=== PATIENT | male | born 1985 | race Caucasian/White ===

== ENCOUNTER 2017-05-25 09:21 | Emergency (ER) | payer SELFPAY ==
[~2017-05-25] VITALS: Ht 180.3 cm; Wt 95.3 kg
--- NOTE | 2017-05-25 09:23 | NUR ---
Dr Zhao at the bedside for eval and exam.
[2017-05-25] MEDS ORDERED: LORAZEPAM 2 MG/1 ML VIAL IV ONE (09:30)
[2017-05-25] MEDS ORDERED: ONDANSETRON 4 MG/2 ML VIAL IV ONE (09:30)
[2017-05-25] MEDS ORDERED: IV NORMAL SALINE 1000 ML BAG IV ONE (09:30)
[2017-05-25] MEDS ORDERED: ONDANSETRON 4 MG/2 ML VIAL ONE (09:41)
[2017-05-25] MEDS ORDERED: LORAZEPAM 2 MG/1 ML VIAL ONE (09:42)
[2017-05-25 09:50] LABS: BASOPHILS % (AUTO) 0.2 % (0.0-2.0); EOSINOPHILS % (AUTO) 0.3 % (0.0-7.0); HEMATOCRIT 41.5 % (36.7-47.1); HEMOGLOBIN 14.6 g/dL (12.5-16.3); LYMPHOCYTES # (AUTO) 0.8 K/uL (20.0-40.0); LYMPHOCYTES % (AUTO) 8.7 % (20.5-51.5); MEAN CORPUSCULAR HEMOGLOBIN 32.4 uug (23.8-33.4); MEAN CORPUSCULAR HGB CONC 35 g/dL (32.5-36.3); MEAN CORPUSCULAR VOLUME 92.3 fL (73.0-96.2); MONOCYTES # (AUTO) 0.3 K/uL (2.0-10.0); MONOCYTES % (AUTO) 3.1 % (0.0-11.0); NEUTROPHILS # (AUTO) 8.5 K/uL (1.8-8.9); NEUTROPHILS % (AUTO) 87.7 % (38.5-71.5); PLATELET COUNT (AUTO) 134 K/uL (152-348); WHITE BLOOD COUNT (AUTO) 9.7 K/uL (3.6-10.2)
[2017-05-25 10:07] LABS: BILIRUBIN,TOTAL 1.3 mg/dL (0.2-1.0); CREATININE 1.2 mg/dL (0.6-1.3)
--- NOTE | 2017-05-25 10:41 | NUR ---
IV removed. Catheter intact and site benign. Pressure and 4x4 gauze applied to site. No bleeding noted.
[2017-05-25 10:42] VITALS: BP 132/78
--- NOTE | 2017-05-25 10:43 | NUR ---
Patient discharged to home in stable conditon. Written and verbal after care instructions given. Patient verbalizes understanding of instructions.
== END 2017-05-25 10:43 | disposition home or self-care (01) ==
LOC: ER 09:21
DX: F41.0 Panic disorder [episodic paroxysmal anxiety] (principal); R11.10 Vomiting, unspecified; Z88.0 Allergy status to penicillin
CPT/HCPCS: 36415; 85025; A4663; J2060; J2405; J7030